=== PATIENT | female | born 1995 | race African-American/Black ===

== ENCOUNTER 2018-02-26 20:08 | Inpatient (IN) ==
[2018-02-26] MEDS ORDERED: SODIUM CHLORIDE 0.9% 1,000 ML IV STA (20:13)
[2018-02-26] MEDS ORDERED: ONDANSETRON 4 MG/2 ML VIAL IV STA (20:13)
[2018-02-26] MEDS ORDERED: MORPHINE 4 MG/1 ML VIAL IV STA ×2 (20:13→22:43)
[2018-02-26] MEDS ORDERED: ONDANSETRON 4 MG/2 ML VIAL ONE (20:46)
[2018-02-26] MEDS ORDERED: MORPHINE 4 MG/1 ML VIAL ONE ×2 (20:46→22:44)
[2018-02-26 20:48] LABS: Basophils # 0.1 10*3/uL (0.0-0.2); Basophils % 0.2 % (0.0-0.8); Eosinophils # 0.1 10*3/uL (0.0-0.87); Eosinophils % 0.5 % (0.00-10.9); Hematocrit 40.2 VOL% (35.7-47.0); Hemoglobin 13.2 GM/DL (12.0-16.0); Immature Granulocytes % 0.7 %; Lymphocytes # 3.5 10*3/uL (1.4-4.0); Lymphocytes % 12.7 % (21.3-54.2); Mean Corpuscular HGB Conc 32.8 GM/DL (32-36); Mean Corpuscular Hemoglobin 29 PG (27-34); Mean Corpuscular Volume 89.5 FL (87-102); Mean Platelet Volume 10.2 FL (9.6-12.0); Monocytes # 1.5 10*3/uL (0.11-0.8); Monocytes % 5.3 % (1.7-12.7); Neutrophils # 22.5 10*3/uL (1.4-7.4); Neutrophils % 80.6 % (38.7-73.9); Platelet Count 341 T/CUMM (130-400); Red Blood Count 4.49 MC/CUMM (3.8-5.5); White Blood Count 27.9 T/CUMM (4-12)
[2018-02-26 20:57] LABS: INR 1.1; PT Patient Result 11.4 SECS; Partial Thromboplastin Time 23.8 SECS (0-40)
[2018-02-26 21:09] LABS: Albumin 3.8 G/DL (3.4-5.0); Band Neutrophils 1 % (0-10); Eosinophils 1 % (0-10); Lymphocytes 14 % (20-55); Osmolality,Calculated 281.3 MOS/KG (273-304); Ovalocytes Slight; Platelet Estimate Adequate; Poikilocytosis Slight; Potassium 3.1 MMOL/L (3.5-5.1); Segmented Neutrophils 81 % (50-85); Total Cells Counted 100; Total Protein 7.3 G/DL (6.4-8.3)
[2018-02-26 21:24] LABS: Apearance,Urine H (Clear); Protein,Urine 100 MG/DL; Urine Color Yellow (Yellow); Urine Specific Gravity 1.005 (1.001-1.035)
[2018-02-26 21:25] LABS: Bilirubin,Urine Negative (Negative); Blood, Urine Large mg/dL (Negative); Glucose,Urine (UA) Negative (Negative); Nitrite,Urine Negative (Negative)
[2018-02-26 21:26] LABS: RBC,Urine 40-50 /HPF (0-4); Squamous Epithelial Cell,Urine Few /HPF (0-10); Urine Urobilinogen 0.2 EU/DL (0.2-1.0); WBC,Urine 20-30 /HPF (0-6)
[2018-02-26 21:49] LABS: Barbiturates Screen,Urine Negative (Negative); Benzodiazepines Screen,Urine Negative (Negative); Cannabinoid Screen,Urine Positive (Negative); Opiate Screen,Urine Negative (Negative); Phencyclidine Screen,Urine Negative (Negative)
[2018-02-26] MEDS ORDERED: DIPH/TET/ACEL PERT BOOSTER VACCINE 0.5 ML VIAL IM ONE ×2 (22:46→22:48)
[2018-02-26] MEDS ORDERED: ceFAZolin 1,000 MG VIAL ONE (22:48)
[2018-02-26] MEDS ORDERED: MORPHINE 4 MG/1 ML VIAL IV PRN (23:56)
[2018-02-27] MEDS ORDERED: ONDANSETRON 4 MG/2 ML VIAL IV PRN ×3 (00:10→01:27)
[2018-02-27] MEDS ORDERED: IBUPROFEN 400 MG TABLET PO PRN (00:11)
[2018-02-27] MEDS ORDERED: MEPERIDINE 25 MG/1 ML VIAL ONE (00:36)
[2018-02-27] MEDS ORDERED: ONDANSETRON 4 MG/2 ML VIAL ONE ×2 (00:36→00:41)
[2018-02-27] MEDS ORDERED: PROPOFOL 200 MG/20 ML VIAL IV ONE (00:40)
[2018-02-27] MEDS ORDERED: fentaNYL 100 MCG/2 ML VIAL ONE (00:41)
[2018-02-27] MEDS ORDERED: ACETAMINOPHEN 1,000 MG/100 ML VIAL IV ONE (00:41)
[2018-02-27] MEDS ORDERED: SEVOFLURANE 1 UNIT/15 MINUTE INH ONE (00:41)
[2018-02-27] MEDS ORDERED: SUCCINYLCHOLINE 200 MG/10 ML VIAL ONE (00:41)
[2018-02-27] MEDS ORDERED: MIDAZOLAM 2 MG/2 ML VIAL ONE (00:41)
[2018-02-27] MEDS ORDERED: ROCURONIUM 100 MG/10 ML VIAL IV ONE (00:42)
[2018-02-27] MEDS ORDERED: MEPERIDINE 25 MG/1 ML VIAL IV PRN (00:43)
[2018-02-27] MEDS ORDERED: HYDROmorphone 2 MG/1 ML VIAL IV PRN ×2 (00:43→01:27)
[2018-02-27] MEDS ORDERED: ACETAMINOPHEN 325 MG TABLET PO PRN (01:27)
[2018-02-27] MEDS ORDERED: PROMETHAZINE 25 MG/1 ML VIAL IM PRN (01:27)
[2018-02-27] MEDS: LACTATED RINGERS 1,000 ML IV SCH ×5 (01:36→20:08)
[2018-02-27] MEDS: PANTOPRAZOLE 40 MG TABLET PO SCH (09:26)
[2018-02-27] MEDS: MORPHINE 4 MG/1 ML VIAL IV PRN ×3 (09:41→20:15)
[2018-02-27] MEDS: ceFAZolin 1,000 MG in SYRINGE 1 EACH IV SCH ×2 (09:42→16:22)
[2018-02-28] MEDS: ceFAZolin 1,000 MG in SYRINGE 1 EACH IV SCH ×4 (00:14→23:36)
[2018-02-28] MEDS: MORPHINE 4 MG/1 ML VIAL IV PRN ×2 (05:56→23:13)
[2018-02-28] MEDS: LACTATED RINGERS 1,000 ML IV SCH ×2 (07:05→20:42)
[2018-02-28] MEDS: PANTOPRAZOLE 40 MG TABLET PO SCH ×2 (07:45→10:59)
[2018-02-28] MEDS ORDERED: fentaNYL 100 MCG/2 ML VIAL ONE ×2 (09:24→10:29)
[2018-02-28] MEDS ORDERED: MIDAZOLAM 2 MG/2 ML VIAL ONE (09:24)
[2018-02-28] MEDS ORDERED: MAGNESIUM HYDROXIDE SUSP 30 ML UDCUP PO PRN (10:08)
[2018-02-28] MEDS ORDERED: LACTULOSE 20 GM/30 ML UDCUP PO PRN (10:08)
[2018-02-28] MEDS ORDERED: BISACODYL 10 MG SUPP RECTAL PRN (10:08)
[2018-02-28] MEDS ORDERED: ROPIVACAINE 0.5% 30 ML VIAL ONE (10:17)
[2018-02-28] MEDS ORDERED: PROPOFOL 200 MG/20 ML VIAL IV ONE (10:28)
[2018-02-28] MEDS ORDERED: SEVOFLURANE 1 UNIT/15 MINUTE INH ONE (10:28)
[2018-02-28] MEDS ORDERED: ACETAMINOPHEN 1,000 MG/100 ML VIAL IV ONE (10:29)
[2018-02-28] MEDS ORDERED: PHENYLEPHRINE 10 MG/1 ML VIAL IV ONE (10:29)
[2018-02-28] MEDS ORDERED: ONDANSETRON 4 MG/2 ML VIAL ONE ×2 (10:29→10:46)
[2018-02-28] MEDS ORDERED: ONDANSETRON 4 MG/2 ML VIAL IV PRN (10:44)
[2018-02-28] MEDS ORDERED: HYDROmorphone 2 MG/1 ML VIAL ONE (10:46)
[2018-02-28] MEDS: HYDROmorphone 2 MG/1 ML VIAL IV PRN ×3 (10:48→11:02)
[2018-03-01] MEDS: LACTATED RINGERS 1,000 ML IV SCH ×4 (06:19→18:01)
[2018-03-01] MEDS: ENOXAPARIN 30 MG/0.3 ML SYRINGE SUBCUT SCH (06:21)
[2018-03-01] MEDS: PANTOPRAZOLE 40 MG TABLET PO SCH (10:30)
[2018-03-01] MEDS: ceFAZolin 1,000 MG in SYRINGE 1 EACH IV SCH ×3 (10:32→23:50)
[2018-03-01] MEDS: MORPHINE 4 MG/1 ML VIAL IV PRN (14:03)
[2018-03-02] MEDS: MORPHINE 4 MG/1 ML VIAL IV PRN (02:35)
[2018-03-02] MEDS: LACTATED RINGERS 1,000 ML IV SCH ×2 (04:40→11:27)
[2018-03-02] MEDS: ENOXAPARIN 30 MG/0.3 ML SYRINGE SUBCUT SCH (05:00)
[2018-03-02] MEDS: ceFAZolin 1,000 MG in SYRINGE 1 EACH IV SCH ×2 (08:46→16:07)
[2018-03-02] MEDS: PANTOPRAZOLE 40 MG TABLET PO SCH (09:11)
[2018-03-02 10:44] LABS: Basophils % 0.5 % (0.0-0.8); Immature Granulocytes % 0.2 %; Immature Granulocytes Absolute 0.02 #; Red Cell Distribution Width 13.8 % (9.3-17.3)
[2018-03-02 10:50] LABS: Eosinophils # 0.3 10*3/uL (0.0-0.87); Eosinophils % 3.3 % (0.00-10.9); Hematocrit 33.5 VOL% (35.7-47.0); Lymphocytes # 2.3 10*3/uL (1.4-4.0); Mean Corpuscular HGB Conc 33.1 GM/DL (32-36); Mean Corpuscular Hemoglobin 29 PG (27-34); Mean Corpuscular Volume 87.9 FL (87-102); Mean Platelet Volume 10.3 FL (9.6-12.0); Monocytes # 0.7 10*3/uL (0.11-0.8); Neutrophils # 4.9 10*3/uL (1.4-7.4); Red Blood Count 3.81 MC/CUMM (3.8-5.5)
[2018-03-02 10:53] LABS: Hemoglobin 11.1 GM/DL (12.0-16.0); Platelet Count 263 T/CUMM (130-400); White Blood Count 8.1 T/CUMM (4-12)
[2018-03-02 11:38] LABS: Calcium 8.3 MG/DL (8.5-10.1); Osmolality,Calculated 275.3 MOS/KG (273-304); Potassium 3.7 MMOL/L (3.5-5.1)
[2018-03-03] MEDS: ceFAZolin 1,000 MG in SYRINGE 1 EACH IV SCH ×4 (00:25→23:19)
[2018-03-03] MEDS: ENOXAPARIN 30 MG/0.3 ML SYRINGE SUBCUT SCH (05:29)
[2018-03-03] MEDS: MORPHINE 4 MG/1 ML VIAL IV PRN (06:43)
[2018-03-03] MEDS: PANTOPRAZOLE 40 MG TABLET PO SCH (09:16)
[2018-03-04] MEDS: ENOXAPARIN 30 MG/0.3 ML SYRINGE SUBCUT SCH (06:01)
[2018-03-04] MEDS: PANTOPRAZOLE 40 MG TABLET PO SCH (09:18)
[2018-03-04] MEDS: ceFAZolin 1,000 MG in SYRINGE 1 EACH IV SCH (09:18)
[2018-03-04 11:21] VITALS: BP 125/71
== END 2018-03-04 14:00 | disposition home or self-care (01) | DRG 489 ==
LOC: EDUNIT# → EDBD → N.ED 20:08 → N.EDINP 20:08 → N.3E 20:08
PROVIDERS: ADMIT Surgery; ATTEND Surgery

== ENCOUNTER 2022-05-25 23:59 | Inpatient (IN) ==
[2022-05-26] MEDS ORDERED: OXYTOCIN/LR 20 UNIT/1,000 ML BAG IV ONE ×2 (00:12→17:19)
[2022-05-26] MEDS ORDERED: ACETAMINOPHEN 500 MG TABLET PO PRN (00:12)
[2022-05-26] MEDS ORDERED: CARBOPROST TROMETHAMINE 250 MCG/ML AMP IM PRN (00:12)
[2022-05-26] MEDS ORDERED: miSOPROStoL 200 MCG TABLET RECTAL PRN (00:12)
[2022-05-26] MEDS ORDERED: LACTATED RINGERS 250 ML IV ONE (00:12)
[2022-05-26] MEDS ORDERED: LACTATED RINGERS 500 ML IV PRN (00:12)
[2022-05-26] MEDS ORDERED: TRANEXAMIC ACID 1,000 MG in SODIUM CHLORIDE 0.9% 100 ML IV PRN (00:12)
[2022-05-26] MEDS ORDERED: METHYLERGONOVINE 0.2 MG/1 ML AMP IM PRN (00:12)
[2022-05-26] MEDS ORDERED: ONDANSETRON 4 MG/2 ML VIAL IV PRN (00:12)
[2022-05-26] MEDS ORDERED: MEPERIDINE 50 MG/1 ML VIAL IV PRN (00:19)
[2022-05-26] MEDS ORDERED: LACTATED RINGERS 1,000 ML IV SCH (00:30)
[2022-05-26 00:48] LABS: Basophils % 0.3 % (0.0-0.8); Eosinophils # 0.2 10*3/uL (0.0-0.87); Eosinophils % 1.3 % (0.00-10.9); Hematocrit 33.4 VOL% (35.7-47.0); Hemoglobin 11.4 GM/DL (12.0-16.0); Immature Granulocytes % 0.5 %; Immature Granulocytes Absolute 0.06 #; Lymphocytes # 2.8 10*3/uL (1.4-4.0); Lymphocytes % 22.4 % (21.3-54.2); Mean Corpuscular HGB Conc 34.1 GM/DL (32-36); Mean Corpuscular Volume 85.9 FL (87-102); Mean Platelet Volume 9.9 FL (9.6-12.0); Monocytes # 0.8 10*3/uL (0.11-0.8); Monocytes % 6.3 % (1.7-12.7); Neutrophils % 69.2 % (38.7-73.9); Platelet Count 281 T/CUMM (130-400); Red Blood Count 3.89 MC/CUMM (3.8-5.5); Red Cell Distribution Width 13.9 % (9.3-17.3); White Blood Count 12.4 T/CUMM (4-12)
[2022-05-26 01:12] LABS: Alanine Aminotransferase 11 U/L (13-56); Albumin 2.8 G/DL (3.4-5.0); Alkaline Phosphatase 293 U/L (45-117); Aspartate Amino Transferase 8 U/L (0-37); Bilirubin,Total < 0.39 MG/DL (0.20-1.00); Blood Urea Nitrogen 2 MG/DL (7-18); Calcium 8.7 MG/DL (8.5-10.1); Carbon Dioxide 21 MMOL/L (21-32); Chloride 106 MMOL/L (98-107); Glucose 87 MG/DL (74-106); Osmolality,Calculated 267.8 MOS/KG (273-304); Potassium 3.3 MMOL/L (3.5-5.1); Sodium 137 MMOL/L (136-145); Total Protein 7.1 G/DL (6.4-8.2)
[2022-05-26] MEDS: MEPERIDINE 50 MG/1 ML VIAL IV PRN ×2 (05:35→09:24)
[2022-05-26] MEDS ORDERED: OXYTOCIN/LR 20 UNIT/1,000 ML BAG IV SCH (10:00)
[2022-05-26] MEDS ORDERED: AMPICILLIN INJ 2,000 MG in SODIUM CHLORIDE 0.9% 100 ML IV ONE (12:21)
[2022-05-26 15:09] LABS: Cord Venous Blood HCO3 22.3 MMOL/L; Cord Venous Blood PCO2 38.7 MMHG; Cord Venous Blood PO2 37.9
[2022-05-26] MEDS ORDERED: AMPICILLIN INJ 1,000 MG in SODIUM CHLORIDE 0.9% 100 ML IV SCH (15:30)
[2022-05-26] MEDS ORDERED: BENZOCAINE 20%/MENTHOL 0.5% SPRAY 56 GM CAN TOP PRN (17:19)
[2022-05-26] MEDS ORDERED: RHO(D) IMMUNE GLOBULIN 300 MCG SYRINGE IM ONE (17:19)
[2022-05-26] MEDS ORDERED: ACETAMINOPHEN 325 MG TABLET PO PRN (17:19)
[2022-05-26] MEDS ORDERED: oxyCODONE/ACETAMINOPHEN 5-325 MG TABLET PO PRN ×2 (17:19)
[2022-05-26] MEDS ORDERED: HYDROCORTISONE 2.5% RECTAL CREAM 30 GM TUBE TOP PRN (17:19)
[2022-05-26] MEDS ORDERED: BISACODYL 10 MG SUPP RECTAL PRN (17:19)
[2022-05-26] MEDS ORDERED: LANOLIN 50% CREAM 0.3 OZ TUBE TOP PRN (17:19)
[2022-05-26] MEDS ORDERED: WITCH HAZEL PADS 100/JAR TOP PRN (17:19)
[2022-05-26] MEDS ORDERED: MEASLES/MUMPS/RUBELLA VACCINE 0.5 ML VIAL SUBCUT ONE (17:19)
[2022-05-26] MEDS ORDERED: DIPH/TET/ACEL PERT BOOSTER VACCINE 0.5 ML VIAL IM ONE (17:19)
[2022-05-26] MEDS: DOCUSATE SODIUM 100 MG CAPSULE PO SCH (21:29)
[2022-05-26] MEDS ORDERED: POTASSIUM CHLORIDE 20 MEQ TABLET PO ONE (22:19)
[2022-05-27] MEDS: IBUPROFEN 800 MG TABLET PO PRN ×2 (00:56→15:20)
[2022-05-27 06:15] LABS: Basophils % 0.3 % (0.0-0.8); Eosinophils # 0.1 10*3/uL (0.0-0.87); Eosinophils % 0.5 % (0.00-10.9); Hematocrit 29.1 VOL% (35.7-47.0); Hemoglobin 9.9 GM/DL (12.0-16.0); Immature Granulocytes % 0.6 %; Immature Granulocytes Absolute 0.09 #; Lymphocytes # 3.3 10*3/uL (1.4-4.0); Lymphocytes % 21.2 % (21.3-54.2); Mean Corpuscular Volume 86.1 FL (87-102); Monocytes % 6.5 % (1.7-12.7); Neutrophils % 70.9 % (38.7-73.9); Platelet Count 250 T/CUMM (130-400); Red Blood Count 3.38 MC/CUMM (3.8-5.5); Red Cell Distribution Width 13.5 % (9.3-17.3); White Blood Count 15.6 T/CUMM (4-12)
[2022-05-27] MEDS: POTASSIUM CHLORIDE 20 MEQ TABLET PO PRN ×4 (06:56→16:58)
[2022-05-27] MEDS: DOCUSATE SODIUM 100 MG CAPSULE PO SCH ×2 (09:21→22:26)
[2022-05-27] MEDS: FERROUS SULFATE 325 MG TABLET PO SCH (09:21)
[2022-05-28] MEDS: FERROUS SULFATE 325 MG TABLET PO SCH ×2 (07:28→09:00)
[2022-05-28] MEDS: DOCUSATE SODIUM 100 MG CAPSULE PO SCH ×2 (07:28→09:00)
[2022-05-28] MEDS: IBUPROFEN 800 MG TABLET PO PRN (07:30)
[2022-05-28 08:42] VITALS: BP 138/95
== END 2022-05-28 15:00 | disposition home or self-care (01) | DRG 560 ==
LOC: N.LD 23:59 → N.OB 05-26 17:13
PROVIDERS: ADMIT Obstetrics & Gynecology; ATTEND Obstetrics & Gynecology